=== PATIENT | female | born 1990 | race Asian ===

== ENCOUNTER 2018-02-02 02:52 | Emergency (ER) | payer OTHER ==
[~2018-02-02] VITALS: Ht 160 cm; Wt 57.2 kg
[2018-02-02] MEDS ORDERED: ZYNCOF 20-400120 ML PO (05:40)
[2018-02-02] MEDS ORDERED: FLONASE16 GM IH (05:40)
[2018-02-02] MEDS ORDERED: ALBUTEROL2.5 MG/3 M IH (05:40)
[2018-02-02] MEDS ORDERED: DICLOFENAC SODI50 MG PO (05:41)
== END 2018-02-02 14:03 | disposition home or self-care (01) ==
LOC: ER 02:52
DX: J40 Bronchitis, not specified as acute or chronic (principal); M54.89 Other dorsalgia; J11.1 Influenza due to unidentified influenza virus with other respiratory manifestations

== ENCOUNTER → 2019-08-21 | Outpatient (CLI) | payer OTHER ==
[~2019-08-21] MED LIST: ALBUTEROL2.5 MG/3 M IH; BENADRYL25 MG PO; DICLOFENAC SODI50 MG PO; FLONASE16 GM IH; MEDROL8 MG PO; PEPCID40 MG PO; ZYNCOF 20-400120 ML PO
== END | disposition home or self-care (01) ==
LOC: PRENATAL 10:00
DX: O35.3XX0 Maternal care for (suspected) damage to fetus from viral disease in mother, not applicable or unspecified (principal); O34.11 Maternal care for benign tumor of corpus uteri, first trimester; Z36.89 Encounter for other specified antenatal screening

== ENCOUNTER → 2019-10-02 | Outpatient (CLI) | payer OTHER | END | disposition home or self-care (01) | LOC: PRENATAL 08:24 | PROVIDERS: ATTEND Obstetrics & Gynecology | DX: O35.0XX1 Maternal care for (suspected) central nervous system malformation in fetus, fetus 1 (principal); O34.12 Maternal care for benign tumor of corpus uteri, second trimester; O35.3XX1 Maternal care for (suspected) damage to fetus from viral disease in mother, fetus 1; D25.9 Leiomyoma of uterus, unspecified ==

== ENCOUNTER → 2022-08-26 | Outpatient (CLI) | payer OTHER | END | disposition home or self-care (01) | LOC: SONOGRAMA 09:19 | PROVIDERS: ATTEND Obstetrics & Gynecology | DX: N94.89 Other specified conditions associated with female genital organs and menstrual cycle (principal) ==

== ENCOUNTER 2023-12-17 21:25 | Emergency (ER) | payer OTHER ==
[~2023-12-17] VITALS: Ht 154.9 cm; Wt 61.2 kg
[2023-12-17] MEDS ORDERED: PRENATAL + DHA1 EAC1 (22:06)
[2023-12-17] MEDS ORDERED: GUAIFENESIN 200 MG/10 ML BLIST.PACK PO STA (23:08)
[2023-12-17] MEDS ORDERED: GUAIFENESIN 200 MG/10 ML BLIST.PACK PO ONE (23:45)
[2023-12-18 02:22] LABS: PH,URINE 6.5 (5.0-8.0); URINE APPEARANCE Cloudy; URINE BILIRRUBIN Negative (NEGATIVE); URINE BLOOD Negative; URINE COLOR Yellow; URINE GLUCOSE Negative (NEGATIVE); URINE LEUKOCYTE Moderate; URINE NITRATE Negative; URINE PROTEIN Trace (NEGATIVE)
[2023-12-18 02:25] LABS: URINE BACTERIA 5550.2 uL (0.0-1933); URINE EPITHELIAL CELLS 125.9 uL (0.0-38.8); URINE RBC 8.7 uL (0.0-20.8); URINE WBC 125.6 uL (0.0-23.2)
[2023-12-18 02:32] LABS: URINE KETONE 40 (NEGATIVE)
[2023-12-18] MEDS ORDERED: TUSSIN100 MG/51 PO (02:40)
[2023-12-18] MEDS ORDERED: MACRODANTIN100 M1 PO (02:40)
== END 2023-12-18 02:45 | disposition home or self-care (01) ==
LOC: ER 21:26
PROVIDERS: General Practice
DX: O23.31 Infections of other parts of urinary tract in pregnancy, first trimester (principal); R10.2 Pelvic and perineal pain; J06.9 Acute upper respiratory infection, unspecified; N39.0 Urinary tract infection, site not specified; Z3A.14 14 weeks gestation of pregnancy

== ENCOUNTER 2024-01-25 11:51 | Outpatient (CLI) | payer OTHER ==
[~2024-01-25 11:51] MED LIST changes: +MACRODANTIN100 M1 PO; +PRENATAL + DHA1 EAC1; +TUSSIN100 MG/51 PO
== END 2024-01-25 11:54 | disposition home or self-care (01) ==
LOC: PRENATAL 11:51
PROVIDERS: ATTEND Obstetrics & Gynecology Maternal & Fetal Medicine
DX: O44.00 Complete placenta previa NOS or without hemorrhage, unspecified trimester (principal); Z3A.19 19 weeks gestation of pregnancy

== ENCOUNTER 2024-06-13 07:14 | Inpatient (IN) | payer OTHER ==
[~2024-06-13] VITALS: Ht 154.9 cm; Wt 67.6 kg
[2024-06-13] VITALS (8 sets, daily range): BP systolic 93–119; BP diastolic 54–80
[2024-06-13 09:13] LABS: HEMATOCRIT 37.3 % (36.0-45.00); HEMOGLOBIN 12.7 g/dL (12.0-15.00); MEAN CELL VOLUME 86.7 fL (80.00-100.00); MEAN CORPUSCULAR HEMOGLOBIN 29.5 pg (27.00-32.0); PLATELET COUNT 231 K/uL (150-450); RED BLOOD COUNT 4.31 M/uL (4.00-6.00); RED CELL DISTRIBUTION WIDTH 15.2 % (11.5-14.5)
[2024-06-13 10:33] LABS: INR < 0.93; PARTIAL THROMBOPLASTIN TIME 26.2 SECONDS (22.0-34.0); PROTHROMBIN TIME 9.8 SECONDS (9.0-11.5)
[2024-06-13] MEDS ORDERED: OXYTOCIN 500 ML IV ONE (13:45)
[2024-06-13 14:24] LABS: URINE APPEARANCE Clear; URINE BILIRRUBIN Negative (NEGATIVE); URINE BLOOD Negative; URINE COLOR Yellow; URINE GLUCOSE Negative (NEGATIVE); URINE KETONE Trace (NEGATIVE); URINE LEUKOCYTE Negative; URINE NITRATE Negative; URINE PROTEIN Negative (NEGATIVE); URINE UROBILINOGEN 0.2 E.U./dl
[2024-06-13 14:26] LABS: URINE BACTERIA 2006.1 uL (0.0-1933); URINE EPITHELIAL CELLS 51.4 uL (0.0-38.8)
[2024-06-13 15:19] LABS: URINE CAST 0.14 uL (0.0-1.40); URINE RBC 1.1 uL (0.0-20.8)
[2024-06-13] MEDS ORDERED: LIDOCAINE HCL 1% 10ML VIAL IJ ONE (18:45)
[2024-06-13] MEDS ORDERED: OXYTOCIN 1,000 ML IV SCH ×2 (18:45)
[2024-06-13] MEDS ORDERED: ERYTHROMYCIN BASE OPHT 1GM EACH TUBE OP ONE (18:45)
[2024-06-13] MEDS ORDERED: CHLORHEXIDINE GLUCONATE 120 ML BOTTLE TOP ONE (18:45)
[2024-06-13] MEDS ORDERED: ACETAMINOPHEN 500 MG GEL..CAP PO PRN (18:45)
[2024-06-14 00:10] LABS: HEMATOCRIT 43.3 % (36.0-45.00); HEMOGLOBIN 14.3 g/dL (12.0-15.00); MEAN CELL VOLUME 87.7 fL (80.00-100.00); PLATELET COUNT 228 K/uL (150-450); RED BLOOD COUNT 4.94 M/uL (4.00-6.00); RED CELL DISTRIBUTION WIDTH 14.8 % (11.5-14.5)
[2024-06-14 00:15] VITALS: BP 100/66
[2024-06-14 07:19] VITALS: BP 106/67
[2024-06-14] MEDS ORDERED: PNV,CALCIUM 72/IRON/FOLIC ACID 1 TAB TABLET PO SCH (09:00)
[2024-06-14 16:00] VITALS: BP 93/57
[2024-06-15 01:26] VITALS: BP 103/62
[2024-06-15 08:00] VITALS: BP 109/72
== END 2024-06-15 13:24 | disposition home or self-care (01) | DRG 807 ==
LOC: LDR 07:14 → OB/GYN 07:14
PROVIDERS: ADMIT Obstetrics & Gynecology; ATTEND Obstetrics & Gynecology
PROC: 10E0XZZ Delivery of Products of Conception, External Approach (ICD-10-PCS; principal; 2024-06-13)
PROC: 0KQM0ZZ Repair Perineum Muscle, Open Approach (ICD-10-PCS; 2024-06-13)
PROC: 4A1HXCZ Monitoring of Products of Conception, Cardiac Rate, External Approach (ICD-10-PCS; 2024-06-13)
DX: O70.1 Second degree perineal laceration during delivery (principal); Z37.0 Single live birth; Z3A.39 39 weeks gestation of pregnancy